=== PATIENT | male | born 1955 | race Two or more races ===

== ENCOUNTER 2020-12-03 06:01 | Inpatient (IN) | payer MEDICARE, MEDICAID ==
[~2020-12-03] VITALS: Ht 167.6 cm; Wt 68.9 kg
[2020-12-03 07:34] LABS: HEMATOCRIT. 28.9 % (42.0-52.0); HEMOGLOBIN. 9.4 g/dL (14.0-18.0); MEAN CORPUSCULAR HEMOGLOBIN 30.5 pg (28.0-32.0); MEAN CORPUSCULAR VOLUME 94.2 fL (80.0-94.0); MEAN PLATELET VOLUME 9.5 fl (7.4-10.4); PLATELET 137 x1000/uL (130-400); RED BLOOD CELL COUNT 3.07 mill/uL (4.7-6.1); RED CELL DISTRIBUTION WIDTH 15.6 % (11.6-14.6)
[2020-12-03 07:37] LABS: CHLORIDE 111 mEq/L (98-107)
[2020-12-03 08:18] LABS: PLATELET ESTIMATE NORMAL
[2020-12-03 08:51] LABS: BG BASE EXCESS -3.8 mmol/L (-2.0-2.0); BG CARBOXYHEMOGLOBIN 0.3 % (0.5-1.5); BG FRACTION INSPIRED OXYGEN 44; BG HCO3 ACT 20.6 mmol/L (22.0-26.0); BG METHEMOGLOBIN 0.1 % (0.0-1.5); BG OXYHEMOGLOBIN 95.6 % (94.0-97.0); BG PCO2 34.4 mmHg (35.0-45.0); BG PH 7.395 (7.350-7.450); BG PO2 87.9 mmHg (75.0-100.0); BG SAMPLE SITE RIGHT RADIAL; BG TOTAL HEMOGLOBIN 9.2 g/dL (12.0-18.0); BG VENT MODE NASAL CANNULA
[2020-12-03] MEDS ORDERED: FUROSEMIDE 40MG/4ML VIAL IVP ONE (10:30)
[2020-12-03] MEDS ORDERED: FUROSEMIDE 100MG/10ML VIAL IVP NR (15:15)
[2020-12-03] MEDS ORDERED: DOCUSATE SODIUM 100MG CAPSULE PO PRN (16:15)
[2020-12-03] MEDS ORDERED: PIPERACILLIN/TAZOBACTAM 3.375GM/50ML PREMIX IV ONE (20:15)
[2020-12-03] MEDS ORDERED: VALGANCICLOVIR HYDROCHLORIDE 450MG TABLET PO SCH (21:45)
[2020-12-03] MEDS ORDERED: CARVEDILOL 12.5MG TABLET PO ONE (21:45)
[2020-12-03] MEDS: AMLODIPINE 10MG TABLET PO SCH (21:46)
[2020-12-03] MEDS: HYDROCORTISONE SOD SUCCINATE 100 MG/2 ML VIAL IV SCH (21:46)
[2020-12-03 22:06] LABS: CREATINE KINASE 73 IU/L (39-308)
[2020-12-03 22:08] LABS: CREATINE KINASE MB FRACTION < 1.0 ng/mL (0.5-3.6)
[2020-12-03] MEDS ORDERED: PIPERACILLIN/TAZ 3.375G PREMIX 50 ML IV SCH (22:30)
[2020-12-03] MEDS ORDERED: VANCOMYCIN 1500MG in DEXTROSE 5% WATER 250ML IV NR (23:00)
[2020-12-03] MEDS: PYRIDOXINE HCL 50MG TABLET PO SCH (23:37)
[2020-12-03] MEDS: TACROLIMUS 1MG CAPSULE PO SCH (23:37)
[2020-12-04] VITALS (8 sets, daily range): BP systolic 134–190; BP diastolic 49–88
[2020-12-04] MEDS ORDERED: DOXYCYCLINE 100 MG in DEXT 5% WATER 100 ML IV SCH (03:00)
[2020-12-04 03:15] LABS: BG BASE EXCESS -5.6 mmol/L (-2.0-2.0); BG CARBOXYHEMOGLOBIN 0.3 % (0.5-1.5); BG FRACTION INSPIRED OXYGEN 90; BG HCO3 ACT 19.1 mmol/L (22.0-26.0); BG METHEMOGLOBIN 0.3 % (0.0-1.5); BG OXYHEMOGLOBIN 98.4 % (94.0-97.0); BG PCO2 34.2 mmHg (35.0-45.0); BG PH 7.365 (7.350-7.450); BG SAMPLE SITE RIGHT BRACHIAL; BG TOTAL HEMOGLOBIN 8.6 g/dL (12.0-18.0); BG VENT MODE MASK - BIPAP
[2020-12-04 05:30] LABS: HEMATOCRIT. 29.3 % (42.0-52.0); HEMOGLOBIN. 9.6 g/dL (14.0-18.0); MEAN CORPUSCULAR HEMOGLOBIN 30.2 pg (28.0-32.0); MEAN CORPUSCULAR VOLUME 91.8 fL (80.0-94.0); MEAN PLATELET VOLUME 8.6 fl (7.4-10.4); PLATELET 142 x1000/uL (130-400); RED BLOOD CELL COUNT 3.19 mill/uL (4.7-6.1); RED CELL DISTRIBUTION WIDTH 14.7 % (11.6-14.6)
[2020-12-04 05:37] LABS: CHLORIDE 111 mEq/L (98-107)
[2020-12-04 05:48] LABS: LDL CHOLESTEROL 47 mg/dL (5-100)
[2020-12-04 05:49] LABS: HDL CHOLESTEROL 31 mg/dL (40-59)
[2020-12-04 05:50] LABS: CREATINE KINASE 43 IU/L (39-308); CREATINE KINASE MB FRACTION < 1.0 ng/mL (0.5-3.6)
[2020-12-04 05:51] LABS: PHOSPHORUS 3.2 mg/dL (2.5-4.9)
[2020-12-04] MEDS: HYDROCORTISONE SOD SUCCINATE 100 MG/2 ML VIAL IV SCH ×3 (06:08→21:15)
[2020-12-04 06:14] LABS: PLATELET ESTIMATE NORMAL
[2020-12-04] MEDS: ASPIRIN 81MG EC TABLET PO SCH (09:00)
[2020-12-04] MEDS ORDERED: CARVEDILOL 12.5MG TABLET PO SCH (09:00)
[2020-12-04] MEDS ORDERED: FUROSEMIDE 40MG/4ML VIAL IV SCH (09:00)
[2020-12-04] MEDS ORDERED: INSULIN GLARGINE UD 100 UNITS/ML SYR SUBCUT SCH (10:00)
[2020-12-04] MEDS: TACROLIMUS 1MG CAPSULE PO SCH ×2 (10:37→17:55)
[2020-12-04] MEDS: AMLODIPINE 10MG TABLET PO SCH (10:37)
[2020-12-04] MEDS: PYRIDOXINE HCL 50MG TABLET PO SCH (10:38)
[2020-12-04] MEDS: INSULIN LISPRO 100 UNITS/ML SUBCUT SCH ×4 (10:39→18:19)
[2020-12-04] MEDS: PIPERACILLIN/TAZOBACTAM 3.375G in DEXT 5% WATER 50ML IV SCH ×3 (14:30→23:59)
[2020-12-04] MEDS ORDERED: SODIUM POLYSTYRENE SULFONATE 15 G/60 ML BOT PO NR (16:00)
[2020-12-04] MEDS ORDERED: AMLO10TA80 MT (16:22)
[2020-12-04] MEDS ORDERED: HYDR-4135 PO (16:26)
[2020-12-04] MEDS ORDERED: CARV25TA47 PO (16:28)
[2020-12-04] MEDS ORDERED: ASPI-1497 PO (16:32)
[2020-12-04] MEDS ORDERED: MULTIVITAMIN (16:32)
[2020-12-04] MEDS ORDERED: SODI650T PO (16:34)
[2020-12-04] MEDS ORDERED: FAMO-135 MT (16:37)
[2020-12-04] MEDS ORDERED: SULF-288 PO (16:39)
[2020-12-04] MEDS ORDERED: TACR5CAP MT (16:40)
[2020-12-04] MEDS ORDERED: DOCU-138 MT (16:41)
[2020-12-04] MEDS ORDERED: TRAM50TA3 MT (16:43)
[2020-12-04] MEDS ORDERED: DOXA2TAB PO (16:45)
[2020-12-04] MEDS ORDERED: VALG450T3 PO (16:46)
[2020-12-04] MEDS ORDERED: [UNRECOGNIZED DRUG - OTHER] PO (16:48)
[2020-12-04] MEDS ORDERED: SITA50TA3 PO (16:49)
[2020-12-04] MEDS ORDERED: INSU100I41 (16:50)
[2020-12-04] MEDS ORDERED: PRED-276 PO (16:50)
[2020-12-04] MEDS ORDERED: DEXTROSE 50% WATER 50ML SYRINGE IV PRN (17:45)
[2020-12-04] MEDS: FUROSEMIDE 40MG/4ML VIAL IV SCH (18:09)
[2020-12-04] MEDS: BLOOD SUGAR DIAGNOSTIC STRIP TEST SCH ×2 (18:11→21:00)
[2020-12-04] MEDS ORDERED: *PATIENT'S OWN MEDICATION STORAGE XX SCH (18:15)
[2020-12-04] MEDS: DOXYCYCLINE 100 MG in DEXT 5% WATER 100 ML IV SCH ×2 (18:21→21:15)
[2020-12-04] MEDS: HYDRALAZINE HCL 100MG TABLET PO SCH (21:16)
[2020-12-05] VITALS (7 sets, daily range): BP systolic 132–159; BP diastolic 47–74
[2020-12-05] MEDS: DOXYCYCLINE 100 MG in DEXT 5% WATER 100 ML IV SCH (05:18)
[2020-12-05] MEDS: HYDROCORTISONE SOD SUCCINATE 100 MG/2 ML VIAL IV SCH (05:18)
[2020-12-05] MEDS: HYDRALAZINE HCL 100MG TABLET PO SCH (05:19)
[2020-12-05] MEDS: PIPERACILLIN/TAZOBACTAM 3.375G in DEXT 5% WATER 50ML IV SCH ×2 (06:39→12:00)
[2020-12-05] MEDS: BLOOD SUGAR DIAGNOSTIC STRIP TEST SCH ×2 (07:37→12:07)
[2020-12-05 07:38] LABS: BG BASE EXCESS -2.9 mmol/L (-2.0-2.0); BG CARBOXYHEMOGLOBIN 0.1 % (0.5-1.5); BG DEOXYHEMOGLOBIN 2.7 % (0.0-5.0); BG FRACTION INSPIRED OXYGEN 32; BG HCO3 ACT 21.2 mmol/L (22.0-26.0); BG METHEMOGLOBIN 0.1 % (0.0-1.5); BG OXYGEN SATURATION 97.3 % (92.0-98.5); BG OXYHEMOGLOBIN 97.1 % (94.0-97.0); BG PCO2 34.2 mmHg (35.0-45.0); BG PH 7.411 (7.350-7.450); BG PO2 111.7 mmHg (75.0-100.0); BG SAMPLE SITE RIGHT BRACHIAL; BG VENT MODE NASAL CANNULA
[2020-12-05] MEDS ORDERED: VALGANCICLOVIR HYDROCHLORIDE 450MG TABLET PO SCH (09:00)
[2020-12-05] MEDS ORDERED: SULFAMETHOXAZOLE/TRIMETHOPRIM 800/160MG TABLET PO SCH (09:00)
[2020-12-05] MEDS: FUROSEMIDE 40MG/4ML VIAL IV SCH (09:11)
[2020-12-05] MEDS: INSULIN LISPRO 100 UNITS/ML SUBCUT SCH ×2 (09:12→12:26)
[2020-12-05] MEDS: ASPIRIN 81MG EC TABLET PO SCH (09:12)
[2020-12-05] MEDS: AMLODIPINE 10MG TABLET PO SCH (09:16)
[2020-12-05] MEDS: PYRIDOXINE HCL 50MG TABLET PO SCH (09:16)
[2020-12-05] MEDS: TACROLIMUS 1MG CAPSULE PO SCH (10:14)
[2020-12-05 10:17] LABS: CHLORIDE 112 mEq/L (98-107)
[2020-12-05 10:24] LABS: HEMATOCRIT. 34.5 % (42.0-52.0); MEAN CORPUSCULAR HEMOGLOBIN 30.9 pg (28.0-32.0); MEAN CORPUSCULAR VOLUME 97.1 fL (80.0-94.0); MEAN PLATELET VOLUME 9.7 fl (7.4-10.4); PLATELET 149 x1000/uL (130-400); RED BLOOD CELL COUNT 3.55 mill/uL (4.7-6.1); RED CELL DISTRIBUTION WIDTH 15.3 % (11.6-14.6)
[2020-12-05] MEDS ORDERED: INSULIN GLARGINE UD 100 UNITS/ML SYR SUBCUT SCH (10:35)
[2020-12-05] MEDS ORDERED: *PATIENT'S OWN MEDICATION STORAGE XX SCH (12:00)
[2020-12-05 16:17] LABS: PLATELET ESTIMATE NORMAL
== END 2020-12-05 12:30 | disposition short-term general hospital (02) | DRG 871 ==
LOC: ER 06:26 → EDBEDREQTM 10:29 → EDBEDREQ 10:29 → EDBEDREQSVC 10:30 → 5EST 13:41 → EDBEDREQ 13:42 → CANBEDREQ 14:27 → EDBEDREQSVC 16:05 → ENRESERV 12-04 07:34
PROVIDERS: ADMIT Family Medicine; ATTEND Family Medicine
PROC: 5A09457 Assistance with Respiratory Ventilation, 24-96 Consecutive Hours, Continuous Positive Airway Pressure (ICD-10-PCS; principal; 2020-12-02)
DX: A41.9 Sepsis, unspecified organism (principal); J18.9 Pneumonia, unspecified organism; J96.01 Acute respiratory failure with hypoxia; N18.6 End stage renal disease; E87.2 Acidosis; I13.2 Hypertensive heart and chronic kidney disease with heart failure and with stage 5 chronic kidney disease, or end stage renal disease; N17.9 Acute kidney failure, unspecified; Z94.0 Kidney transplant status; D64.9 Anemia, unspecified; E83.42 Hypomagnesemia; E11.22 Type 2 diabetes mellitus with diabetic chronic kidney disease; E66.9 Obesity, unspecified; I16.0 Hypertensive urgency; E87.5 Hyperkalemia; R00.1 Bradycardia, unspecified; I25.10 Atherosclerotic heart disease of native coronary artery without angina pectoris; I50.9 Heart failure, unspecified; Z20.822 Contact with and (suspected) exposure to COVID-19; Z79.899 Other long term (current) drug therapy; Z79.4 Long term (current) use of insulin; Z83.3 Family history of diabetes mellitus; Z90.5 Acquired absence of kidney; Z95.5 Presence of coronary angioplasty implant and graft; Z99.2 Dependence on renal dialysis; Z79.82 Long term (current) use of aspirin; Z68.24 Body mass index [BMI] 24.0-24.9, adult
CPT/HCPCS: 36415; 36600; 71045; 80053; 80061; 82375; 82550; 82553; 82805; 82962; 83036; 83735; 83880; 84100; 84145; 84484; 85025; 87804; 93005; 93306; 94660; 99285; C1893; C9803; J1720; J1815; J1940; J2543; J3370; J3490; J7060; J7507; U0003; U0005